=== PATIENT | male | born 1975 | race Two or more races ===

== ENCOUNTER 2025-04-26 08:39 | Emergency (ER) | payer MEDICAID, OTHER ==
[~2025-04-26] VITALS: Ht 175.3 cm; Wt 72.0 kg
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
[2025-04-26] MEDS: SODIUM CHLORIDE 0.9% 1,000 ML IV ONE (09:26)
[2025-04-26 09:30] VITALS: TEMP 99.1
[2025-04-26 09:31] VITALS: PULSE 86; RESP 18; O2SAT 95
[2025-04-26] MEDS: PHENYTOIN IV DILANTIN 300 MG in SODIUM CHL 0.9% 50 ML IV ONE (09:49)
[2025-04-26 10:00] VITALS: BP 98/69; PULSE 76; RESP 17; O2SAT 96
== END 2025-04-26 11:30 | disposition home or self-care (01) ==
LOC: EDBD 08:39 → ER 08:46
DX: R56.9 Unspecified convulsions (principal)
CPT/HCPCS: 82947; 96365; 99284; J1165; J7030